=== PATIENT | female | born 1940 | race Caucasian/White ===

== ENCOUNTER 2017-07-19 12:41 | Inpatient (IN) | payer OTHER ==
[~2017-07-19] VITALS: Ht 167.6 cm; Wt 60.9 kg
[~2017-07-19 12:41] MED LIST: AMLO2.5T PO; ASPI-496 PO; BUDE3CAP6 PO; CYCL5TAB PO; ERGO500018 PO; LISI-170 PO; MAGNESIUM DR64 MG PO; MELO7.5T31 PO; POTA20TA14 PO; PREDNISOLONE PO; SERT25TA PO; SIMV20TA3 PO; SIMV5TAB5 PO; TEMA30CA PO; [UNRECOGNIZED DRUG - OTHER] MT
[2017-07-19] MEDS ORDERED: SODIUM CHLORIDE FLUSH 10ML SYR IVF ONE (13:30)
[2017-07-19 13:35] LABS: BASOPHILS # (AUTO) 0.02 x10^3/uL (0-0.1); BASOPHILS % (AUTO) 0 % (0-1); EOSINOPHILS # (AUTO) 0.03 x10^3/uL (0-0.4); EOSINOPHILS % (AUTO) 0 % (1-7); LYMPHOCYTES # (AUTO) 1.97 x10^3/uL (1-3.4); LYMPHOCYTES % (AUTO) 22 % (22-44); MD NO; MEAN CORPUSCULAR HEMOGLOBIN 30.2 pg (27.0-34.8); MEAN CORPUSCULAR HGB CONC 33.9 g/dL (32.4-35.8); MEAN CORPUSCULAR VOLUME 89.2 fL (80-100); MONOCYTES # (AUTO) 0.64 x10^3/uL (0.2-0.8); MONOCYTES % (AUTO) 7 % (2-9); NEUTROPHILS % (AUTO) 71 % (42-75); PLATELET COUNT 363 x10^3/uL (130-400); RED BLOOD COUNT 2.97 x10^6/uL (3.82-5.3); RED CELL DISTRIBUTION WIDTH 14.8 % (9.6-15.2)
[2017-07-19 13:42] LABS: INTERNATIONAL NORMALIZED RATIO 0.91 (0.93-1.1); PROTHROMBIN TIME 9.5 Seconds (9.6-11.5)
[2017-07-19 13:45] LABS: ALANINE AMINOTRANSFERASE 12 U/L (12-78); ANION GAP 5 mmol/L (5-15); CALCIUM 8.4 mg/dL (8.5-10.1); CHLORIDE 115 mmol/L (98-107); CREATININE 1.24 mg/dL (0.55-1.02)
[2017-07-19 13:48] LABS: ALKALINE PHOSPHATASE 82 U/L (45-117); BILIRUBIN,TOTAL 0.2 mg/dL (0.2-1.0); TOTAL PROTEIN 7.2 g/dL (6.4-8.2)
[2017-07-19] MEDS: SODIUM CHLORIDE 0.9% 1,000 ML IV SCH (15:25)
[2017-07-19] MEDS ORDERED: ONDANSETRON ODT 4 MG PO PRN (15:30)
[2017-07-19] MEDS ORDERED: POLYETHYLENE GLYCOL 17 GM PACKET PO PRN (15:30)
[2017-07-19] MEDS ORDERED: ACETAMINOPHEN 325 MG TABLET PO PRN (15:30)
[2017-07-19] MEDS ORDERED: SODIUM CHLORIDE FLUSH 10ML SYR IVF PRN (16:00)
[2017-07-19] MEDS ORDERED: SERT100T5 PO (16:03)
[2017-07-19] MEDS ORDERED: CHOL4POW3 PO (16:03)
[2017-07-19 17:17] VITALS: BP 108/63
[2017-07-19 18:46] VITALS: BP 106/70
[2017-07-19] MEDS: FAMOTIDINE 20 MG TABLET PO SCH ×2 (20:05→20:13)
[2017-07-19] MEDS: CHOLESTYRAMINE LIGHT 4GM PACKET PO SCH ×2 (20:05→20:13)
[2017-07-19] MEDS: TEMAZEPAM 30 MG CAPSULE PO SCH ×2 (20:05→20:13)
[2017-07-19] MEDS: SIMVASTATIN 20 MG TABLET PO SCH ×2 (20:05→20:13)
[2017-07-19] MEDS: POTASSIUM CHLORIDE 20 MEQ TAB.ER.PRT PO SCH ×2 (20:05→20:13)
[2017-07-20] MEDS: SODIUM CHLORIDE 0.9% 1,000 ML IV SCH ×3 (01:04→21:00)
[2017-07-20 03:08] VITALS: BP 115/74
[2017-07-20 04:45] LABS: BASOPHILS # (AUTO) 0.03 x10^3/uL (0-0.1); BASOPHILS % (AUTO) 0 % (0-1); EOSINOPHILS # (AUTO) 0.04 x10^3/uL (0-0.4); EOSINOPHILS % (AUTO) 1 % (1-7); LYMPHOCYTES # (AUTO) 1.86 x10^3/uL (1-3.4); LYMPHOCYTES % (AUTO) 25 % (22-44); MD NO; MEAN CORPUSCULAR HEMOGLOBIN 29.6 pg (27.0-34.8); MEAN CORPUSCULAR HGB CONC 33.3 g/dL (32.4-35.8); MEAN CORPUSCULAR VOLUME 88.9 fL (80-100); MONOCYTES # (AUTO) 0.58 x10^3/uL (0.2-0.8); MONOCYTES % (AUTO) 8 % (2-9); NEUTROPHILS % (AUTO) 66 % (42-75); PLATELET COUNT 332 x10^3/uL (130-400); RED BLOOD COUNT 2.84 x10^6/uL (3.82-5.3); RED CELL DISTRIBUTION WIDTH 14.9 % (9.6-15.2)
[2017-07-20 04:53] LABS: ANION GAP 7 mmol/L (5-15); CALCIUM 8.4 mg/dL (8.5-10.1); CHLORIDE 119 mmol/L (98-107); CREATININE 0.94 mg/dL (0.55-1.02)
[2017-07-20 04:54] LABS: ALANINE AMINOTRANSFERASE 9 U/L (12-78); ALBUMIN 2.6 g/dL (3.4-5.0)
[2017-07-20 04:56] LABS: ALKALINE PHOSPHATASE 72 U/L (45-117); BILIRUBIN,TOTAL 0.4 mg/dL (0.2-1.0); TOTAL PROTEIN 6.1 g/dL (6.4-8.2)
[2017-07-20 08:00] VITALS: BP 114/71
[2017-07-20] MEDS: SERTRALINE 100MG TABLET PO SCH (09:45)
[2017-07-20] MEDS: FAMOTIDINE 20 MG TABLET PO SCH ×2 (09:45→21:41)
[2017-07-20] MEDS: POTASSIUM CHLORIDE 20 MEQ TAB.ER.PRT PO SCH ×2 (09:45→21:00)
[2017-07-20] MEDS: MAGNESIUM CHLORIDE 64 MG TABLET.DR PO SCH (09:45)
[2017-07-20] MEDS: AMLODIPINE 2.5 MG TABLET PO SCH (09:45)
[2017-07-20 12:50] VITALS: BP 127/73
[2017-07-20] MEDS ORDERED: MOVIPREP POWDER 1 PREP KIT PO ONE (17:00)
[2017-07-20 19:04] VITALS: BP 122/85
[2017-07-20] MEDS: SIMVASTATIN 20 MG TABLET PO SCH (21:48)
[2017-07-20] MEDS: TEMAZEPAM 30 MG CAPSULE PO SCH (23:00)
[2017-07-21] VITALS (8 sets, daily range): BP systolic 108–136; BP diastolic 65–81
[2017-07-21] MEDS: SODIUM CHLORIDE 0.9% 1,000 ML IV SCH (05:00)
[2017-07-21 05:38] LABS: BASOPHILS # (AUTO) 0.02 x10^3/uL (0-0.1); BASOPHILS % (AUTO) 0 % (0-1); EOSINOPHILS # (AUTO) 0.07 x10^3/uL (0-0.4); EOSINOPHILS % (AUTO) 1 % (1-7); LYMPHOCYTES # (AUTO) 2.31 x10^3/uL (1-3.4); LYMPHOCYTES % (AUTO) 40 % (22-44); MD NO; MEAN CORPUSCULAR HGB CONC 34.2 g/dL (32.4-35.8); MEAN CORPUSCULAR VOLUME 87.8 fL (80-100); MEAN PLATELET VOLUME 5.9 fL (7.4-10.4); MONOCYTES # (AUTO) 0.58 x10^3/uL (0.2-0.8); MONOCYTES % (AUTO) 10 % (2-9); NEUTROPHILS # (AUTO) 2.76 x10^3/uL (1.8-6.8); NEUTROPHILS % (AUTO) 48 % (42-75); PLATELET COUNT 365 x10^3/uL (130-400); RED BLOOD COUNT 2.75 x10^6/uL (3.82-5.3); RED CELL DISTRIBUTION WIDTH 15.1 % (9.6-15.2)
[2017-07-21 05:41] LABS: ANION GAP 8 mmol/L (5-15); CALCIUM 8.7 mg/dL (8.5-10.1); CHLORIDE 120 mmol/L (98-107)
[2017-07-21 06:09] LABS: CREATININE 0.93 mg/dL (0.55-1.02); FOLATE LEVEL 8.6 ng/mL (3.1-17.5)
[2017-07-21] MEDS ORDERED: POTASSIUM CHLORIDE 10 MEQ in D5%-0.45% NACL 1,000 ML IV SCH (06:30)
[2017-07-21] MEDS ORDERED: PROPOFOL 10 MG/ML, 20ML ONE (08:01)
[2017-07-21] MEDS ORDERED: FENTANYL PF 100 MCG/2ML IV PRN ×2 (09:00)
[2017-07-21] MEDS ORDERED: MORPHINE SULFATE 4 MG/ML, 1ML IVPush PRN (09:00)
[2017-07-21] MEDS ORDERED: EPHEDRINE 50 MG/ML, 1ML IM PRN (09:00)
[2017-07-21] MEDS ORDERED: ONDANSETRON ODT 8 MG PO PRN (09:00)
[2017-07-21] MEDS ORDERED: hydrALAzine 20 MG/ML, 1ML IV PRN (09:00)
[2017-07-21] MEDS ORDERED: PROMETHAZINE 25 MG/ML, 1ML IV PRN (09:00)
[2017-07-21] MEDS ORDERED: DIAZEPAM 5 MG/ML, 2ML IVPush PRN (09:00)
[2017-07-21] MEDS ORDERED: ACETAMINOPHEN 325 MG TABLET PO PRN (09:00)
[2017-07-21] MEDS ORDERED: ALBUTEROL SULFATE 2.5 MG/3 ML NPPB PRN (09:00)
[2017-07-21] MEDS ORDERED: HYDROCORTISONE 25 MG SUPP PR SCH (09:00)
[2017-07-21] MEDS ORDERED: LABETALOL 5MG/ML, 20ML IV PRN ×2 (09:00)
[2017-07-21] MEDS ORDERED: MIDAZOLAM 1 MG/ML, 2ML IV PRN (09:00)
[2017-07-21] MEDS ORDERED: OXYcodone 5 MG/5 ML ORAL.SOL UDC PO PRN (09:00)
[2017-07-21] MEDS ORDERED: ALBUTEROL/IPRATROPIUM 2.5MG/0.5MG, 3 ML NPPB PRN ×2 (09:00)
[2017-07-21] MEDS: FAMOTIDINE 20 MG TABLET PO SCH (09:36)
[2017-07-21] MEDS: MAGNESIUM CHLORIDE 64 MG TABLET.DR PO SCH (09:36)
[2017-07-21] MEDS: POTASSIUM CHLORIDE 20 MEQ TAB.ER.PRT PO SCH (09:36)
[2017-07-21] MEDS: AMLODIPINE 2.5 MG TABLET PO SCH (09:36)
[2017-07-21] MEDS: SERTRALINE 100MG TABLET PO SCH (09:36)
[2017-07-21] MEDS ORDERED: HYDR25SU3 PR (12:41)
[2017-07-21] MEDS ORDERED: FERR325T5 PO (12:41)
== END 2017-07-21 13:58 | disposition home or self-care (01) | DRG 393 ==
LOC: ED 15:39 → EDIP 15:44 → 3NE 16:33
PROVIDERS: ADMIT Family Medicine; ATTEND Family Medicine
PROC: 0DBL8ZX Excision of Transverse Colon, Via Natural or Artificial Opening Endoscopic, Diagnostic (ICD-10-PCS; 2017-07-21)
PROC: 0DBN8ZX Excision of Sigmoid Colon, Via Natural or Artificial Opening Endoscopic, Diagnostic (ICD-10-PCS; 2017-07-21)
PROC: 0DBP8ZX Excision of Rectum, Via Natural or Artificial Opening Endoscopic, Diagnostic (ICD-10-PCS; 2017-07-21)
PROC: 0DBM8ZX Excision of Descending Colon, Via Natural or Artificial Opening Endoscopic, Diagnostic (ICD-10-PCS; 2017-07-21)
PROC: 0DBH8ZX Excision of Cecum, Via Natural or Artificial Opening Endoscopic, Diagnostic (ICD-10-PCS; 2017-07-21)
PROC: 0DBK8ZX Excision of Ascending Colon, Via Natural or Artificial Opening Endoscopic, Diagnostic (ICD-10-PCS; principal; 2017-07-21 08:00)
DX: K62.6 Ulcer of anus and rectum (principal); N17.0 Acute kidney failure with tubular necrosis; D81.9 Combined immunodeficiency, unspecified; E87.2 Acidosis; J44.9 Chronic obstructive pulmonary disease, unspecified; D63.8 Anemia in other chronic diseases classified elsewhere; D50.0 Iron deficiency anemia secondary to blood loss (chronic); I10 Essential (primary) hypertension; F32.9 Major depressive disorder, single episode, unspecified; K52.9 Noninfective gastroenteritis and colitis, unspecified; K52.831 Collagenous colitis; Z66 Do not resuscitate; G89.29 Other chronic pain; E78.5 Hyperlipidemia, unspecified; Z87.891 Personal history of nicotine dependence; Z83.3 Family history of diabetes mellitus; Z80.8 Family history of malignant neoplasm of other organs or systems; Z98.51 Tubal ligation status; Z80.1 Family history of malignant neoplasm of trachea, bronchus and lung; Z80.0 Family history of malignant neoplasm of digestive organs; Z88.1 Allergy status to other antibiotic agents; K52.839 Microscopic colitis, unspecified
CPT/HCPCS: 36415; 80048; 80053; 82607; 82746; 83690; 83735; 84100; 85014; 85018; 85025; 85610; 85730; 86850; 86900; 88305; 93005; 96360; J2704; J3480; J7030